=== PATIENT | female | born 1945 | race Hispanic/Latino ===

== ENCOUNTER → 2019-11-30 | Outpatient (CLI) | payer MEDICARE | END | disposition home or self-care (01) | LOC: LAB 10:46 | PROVIDERS: ATTEND Family Medicine | DX: R55 Syncope and collapse (principal) | CPT/HCPCS: 36415; 82565; 84520 ==

== ENCOUNTER → 2019-12-06 | Outpatient (CLI) | payer MEDICARE ==
[~2019-12-06] MED LIST: GADODIAMIDE 10 MMOL/20 ML VIAL IV ONE
== END | disposition home or self-care (01) ==
LOC: RAH 10:40
PROVIDERS: ATTEND Family Medicine
DX: G31.1 Senile degeneration of brain, not elsewhere classified (principal); I67.82 Cerebral ischemia
CPT/HCPCS: 70553; A9579

== ENCOUNTER 2020-04-27 12:46 | Inpatient (IN) | payer MEDICARE ==
[~2020-04-27] VITALS: Ht 167.6 cm; Wt 78.5 kg
[2020-04-27 13:18] LABS: BASOPHILS % (AUTO) 0.8 % (0.0-5.0); EOSINOPHILS % (AUTO) 1.3 % (0.0-8.0); HEMATOCRIT 35.8 % (36-48); LYMPHOCYTES % (AUTO) 17.3 % (21.0-51.0); MEAN CORPUSCULAR HGB CONC 34.4 g/dL (32.0-36.0); MEAN CORPUSCULAR VOLUME 98.9 fL (79-99); MONOCYTES % (AUTO) 6.3 % (3.0-13.0); NEUTROPHILS % (AUTO) 74.1 % (40.0-77.0); PLATELET COUNT (AUTO) 175 K/uL (130-400); RED BLOOD CELL COUNT(AUTO) 3.62 MIL/uL (4.00-5.50); WHITE BLOOD COUNT (AUTO) 4.7 K/uL (4.8-10.8)
[2020-04-27 13:29] LABS: INR 1.18 (0.85-1.15); PROTHROMBIN TIME 12.7 SEC (9.6-11.6)
[2020-04-27 13:31] LABS: PARTIAL THROMBOPLASTIN TIME 28.8 SEC (26.3-35.5)
[2020-04-27 13:38] LABS: ALBUMIN 4.3 g/dL (3.5-5.0); BILIRUBIN,TOTAL 0.6 mg/dL (0.2-1.0); POTASSIUM 4.1 mmol/L (3.5-5.1); TOTAL PROTEIN, SERUM 7.7 g/dL (6.0-8.3)
[2020-04-27 14:27] LABS: APPEARANCE,URINE Clear (CLEAR); BILIRUBIN,URINE Negative (NEGATIVE); COLOR,URINE Yellow (YELLOW); GLUCOSE, URINE (UA) Negative (NEGATIVE); KETONES,URINE Negative (NEGATIVE); LEUKOCYTE ESTERASE ,URINE Negative (NEGATIVE); NITRATE,URINE Negative (NEGATIVE); OCCULT BLOOD,URINE Negative (NEGATIVE); PH,URINE 6.5 (5.0-8.0); PROTEIN,URINE Negative (NEGATIVE); UROBILINOGEN,URINE 0.2 mg/dL (0.2-1.0)
[2020-04-27] MEDS: ASPIRIN 325MG EC TAB PO SCH (15:30)
[2020-04-27] MEDS ORDERED: ASPIRIN 325 MG TABLET ONE (17:10)
[2020-04-27 17:59] LABS: HEMOGLOBIN A1C 5.7 % (4.0-6.0)
[2020-04-27 18:09] LABS: THYROID STIMULATING HORMONE 1.84 uIU/mL (0.36-3.74)
[2020-04-27] MEDS ORDERED: AMLO-258 PO (18:46)
[2020-04-27] MEDS ORDERED: LISI40TA9 PO (19:05)
[2020-04-27] MEDS ORDERED: ALEN35TA53 PO (19:08)
[2020-04-27] MEDS ORDERED: FOLI0.4T6 PO (19:08)
[2020-04-27] MEDS ORDERED: METF-446 PO (19:08)
[2020-04-27] MEDS ORDERED: METH2.5T6 PO (19:08)
[2020-04-27] MEDS ORDERED: HYDR200T4 PO (19:08)
[2020-04-27] MEDS ORDERED: CHOL-34 PO (19:08)
[2020-04-27 19:43] VITALS: BP 145/69
[2020-04-27] MEDS: VITAMIN D3 1000 UNIT PO SCH (19:45)
[2020-04-27 23:51] VITALS: BP 119/63
[2020-04-28 04:00] VITALS: BP_SYST 105; BP_SYST 134; BP_SYST 142; BP_DIAS 56; BP_DIAS 67; BP_DIAS 68
[2020-04-28 05:31] LABS: HEMATOCRIT 33.1 % (36-48); MEAN CORPUSCULAR HEMOGLOBIN 33.6 pg (27.0-33.0); MEAN CORPUSCULAR HGB CONC 34.1 g/dL (32.0-36.0); MEAN CORPUSCULAR VOLUME 98.5 fL (79-99); PLATELET COUNT (AUTO) 163 K/uL (130-400); RED BLOOD CELL COUNT(AUTO) 3.36 MIL/uL (4.00-5.50); WHITE BLOOD COUNT (AUTO) 4.2 K/uL (4.8-10.8)
[2020-04-28 05:44] LABS: ALBUMIN 3.8 g/dL (3.5-5.0); BILIRUBIN,TOTAL 0.6 mg/dL (0.2-1.0); CREATININE 0.9 mg/dL (0.5-1.5); POTASSIUM 3.7 mmol/L (3.5-5.1)
[2020-04-28 07:37] LABS: BAND NEUTROPHILS % (MANUAL) 8 % (0-2); BASOPHILS % (MANUAL) 4 % (0-2); LYMPHOCYTES % (MANUAL) 12 % (22-44); MAN.DIFF COMMENT-IMPRESSION MANUAL DIFFERENTIAL; MONOCYTES % (MANUAL) 8 % (2-9); PLATELET MORPHOLOGY COMMENT ADEQUATE; SEGMENTED NEUTROPHILS % 68 % (40-70)
[2020-04-28] MEDS: AMLODIPINE 5 MG TAB PO SCH ×2 (08:33)
[2020-04-28] MEDS: LISINOPRIL 40 MG TABLET PO SCH ×2 (08:33→08:34)
[2020-04-28] MEDS: FOLIC ACID 1 MG TABLET PO SCH ×2 (08:33→19:55)
[2020-04-28] MEDS: HYDROXYCHLOROQUINE SULFATE 200 MG TAB PO SCH ×2 (08:33)
[2020-04-28] MEDS: METFORMIN HCL 500 MG TABLET PO SCH ×2 (08:33→18:06)
[2020-04-28] MEDS ORDERED: FOLIC ACID 1 MG TABLET PO SCH (09:00)
[2020-04-28 09:40] VITALS: BP 143/57
[2020-04-28 12:39] VITALS: BP 127/55
[2020-04-28] MEDS: ASPIRIN 325MG EC TAB PO SCH (15:30)
[2020-04-28] MEDS ORDERED: ASPIRIN 81MG CHEW TAB ONE (16:13)
[2020-04-28 17:33] VITALS: BP 130/62
[2020-04-28] MEDS: VITAMIN D3 1000 UNIT PO SCH (19:55)
[2020-04-28] MEDS: CHOLECALCIFEROL 25 MCG PO SCH (19:55)
[2020-04-28 20:38] VITALS: BP 124/69
[2020-04-28 23:39] VITALS: BP 100/56
[2020-04-29] VITALS (8 sets, daily range): BP systolic 101–160; BP diastolic 54–74
[2020-04-29] MEDS: AMLODIPINE 5 MG TAB PO SCH ×2 (09:00→09:40)
[2020-04-29] MEDS: HYDROXYCHLOROQUINE SULFATE 200 MG TAB PO SCH ×2 (09:00→09:41)
[2020-04-29] MEDS: LISINOPRIL 40 MG TABLET PO SCH ×2 (09:00)
[2020-04-29] MEDS: METFORMIN HCL 500 MG TABLET PO SCH (09:40)
[2020-04-29] MEDS: FOLIC ACID 1 MG TABLET PO SCH ×2 (09:40→20:46)
[2020-04-29] MEDS: ASPIRIN 325MG EC TAB PO SCH (15:30)
[2020-04-29] MEDS: CHOLECALCIFEROL 25 MCG PO SCH (20:51)
[2020-04-29] MEDS: VITAMIN D3 1000 UNIT PO SCH (20:51)
[2020-04-30 04:55] VITALS: BP 130/63
[2020-04-30 04:56] VITALS: BP_SYST 142; BP_SYST 146; BP_DIAS 65; BP_DIAS 66
[2020-04-30 05:39] LABS: BASOPHILS % (AUTO) 1.3 % (0.0-5.0); EOSINOPHILS % (AUTO) 3.6 % (0.0-8.0); HEMATOCRIT 32.3 % (36-48); LYMPHOCYTES % (AUTO) 31.7 % (21.0-51.0); MEAN CORPUSCULAR HEMOGLOBIN 34.1 pg (27.0-33.0); MEAN CORPUSCULAR HGB CONC 34.7 g/dL (32.0-36.0); MEAN CORPUSCULAR VOLUME 98.5 fL (79-99); MONOCYTES % (AUTO) 8.3 % (3.0-13.0); NEUTROPHILS % (AUTO) 54.9 % (40.0-77.0); PLATELET COUNT (AUTO) 156 K/uL (130-400); RED BLOOD CELL COUNT(AUTO) 3.28 MIL/uL (4.00-5.50); RED CELL DISTRIBUTION WIDTH 12.8 % (11.0-15.5); WHITE BLOOD COUNT (AUTO) 4.7 K/uL (4.8-10.8)
[2020-04-30 05:53] LABS: ALBUMIN 3.6 g/dL (3.5-5.0); BILIRUBIN,TOTAL 0.5 mg/dL (0.2-1.0); CREATININE 0.9 mg/dL (0.5-1.5); POTASSIUM 3.7 mmol/L (3.5-5.1); TOTAL PROTEIN, SERUM 6.7 g/dL (6.0-8.3)
[2020-04-30 08:02] VITALS: BP 154/68
[2020-04-30 08:28] LABS: CHOLESTEROL 125 mg/dL (<200); HDL CHOLESTEROL 48 mg/dL (35-85); LDL DIRECT 65 mg/dL (0-99); TRIGLYCERIDES 53 mg/dL (30-200)
[2020-04-30] MEDS: HYDROXYCHLOROQUINE SULFATE 200 MG TAB PO SCH ×2 (09:00→09:38)
[2020-04-30] MEDS: METFORMIN HCL 500 MG TABLET PO SCH (09:38)
[2020-04-30] MEDS: AMLODIPINE 5 MG TAB PO SCH (09:38)
[2020-04-30] MEDS: FOLIC ACID 1 MG TABLET PO SCH (09:38)
[2020-04-30] MEDS ORDERED: ENOXAPARIN SODIUM 40 MG/0.4 ML SYRINGE SQ SCH ×2 (09:45→21:00)
[2020-04-30 11:02] VITALS: BP 135/64
[2020-04-30] MEDS: ASPIRIN 325MG EC TAB PO SCH (14:55)
[2020-04-30 16:17] VITALS: BP 127/65
[2020-04-30] MEDS ORDERED: METH2.5T7 PO (17:27)
[2020-04-30] MEDS ORDERED: FOLI1 PO (17:27)
[2020-04-30] MEDS ORDERED: METF-444 PO (17:27)
[2020-04-30] MEDS ORDERED: HYDR200T4 PO (17:27)
[2020-04-30] MEDS ORDERED: ASPI-891 PO (17:27)
[2020-04-30] MEDS ORDERED: AMLO5TAB4 PO (17:27)
[2020-04-30] MEDS ORDERED: ENOX40DI8 SQ (17:29)
[2020-05-01] MEDS ORDERED: METHOTREXATE SODIUM 2.5 MG TABLET PO SCH (17:00)
[2020-05-02] MEDS ORDERED: METHOTREXATE SODIUM 2.5 MG TABLET PO SCH (09:00)
== END 2020-04-30 19:35 | DRG 313 ==
LOC: EDH 12:46 → EDHIP 15:17 → OBSVTOIN 15:17 → 3AH 17:36
PROVIDERS: ADMIT Internal Medicine; ATTEND Internal Medicine
DX: R07.9 Chest pain, unspecified (principal); E78.5 Hyperlipidemia, unspecified; M06.9 Rheumatoid arthritis, unspecified; I10 Essential (primary) hypertension; I95.1 Orthostatic hypotension; G47.10 Hypersomnia, unspecified; E11.43 Type 2 diabetes mellitus with diabetic autonomic (poly)neuropathy; Z20.822 Contact with and (suspected) exposure to COVID-19; Z90.710 Acquired absence of both cervix and uterus; Z83.3 Family history of diabetes mellitus; Z82.49 Family history of ischemic heart disease and other diseases of the circulatory system
CPT/HCPCS: 36415; 70450; 71045; 71275; 80053; 80061; 81003; 82550; 82948; 83036; 83605; 83690; 83880; 84145; 84443; 84484; 85025; 85378; 85610; 85730; 87426; 93005; 93306; 93356; 93880; 93970; 97039; G0378; J1650; U0003

== ENCOUNTER → 2021-03-17 | Outpatient (CLI) | payer MEDICARE ==
[~2021-03-17] MED LIST changes: +ALEN35TA53 PO; +AMLO-258 PO; +AMLO5TAB4 PO; +ASPI-891 PO; +CHOL-34 PO; +ENOX40DI8 SQ; +FOLI1 PO; -GADODIAMIDE 10 MMOL/20 ML VIAL IV ONE; +HYDR200T4 PO; +LISI40TA9 PO; +METF-444 PO; +METF-446 PO; +METH2.5T6 PO
== END | disposition home or self-care (01) ==
LOC: RAH 09:07
PROVIDERS: ATTEND Family Medicine
DX: Z12.31 Encounter for screening mammogram for malignant neoplasm of breast (principal)
CPT/HCPCS: 77067

== ENCOUNTER → 2021-12-15 | Outpatient (CLI) | payer MEDICARE | END | disposition home or self-care (01) | LOC: RAH 13:16 | PROVIDERS: ATTEND Family Medicine | DX: N63.13 Unspecified lump in the right breast, lower outer quadrant (principal); R92.8 Other abnormal and inconclusive findings on diagnostic imaging of breast | CPT/HCPCS: 76641; 77065 ==